=== PATIENT | male | born 1950 | race Caucasian/White ===

== ENCOUNTER 2018-01-25 17:27 | Inpatient (IN) | payer BC, MEDICARE, SELFPAY ==
[~2018-01-25] VITALS: Ht 177.8 cm; Wt 92.1 kg
[2018-01-25] MEDS ORDERED: OXYC20TA42 PO (17:47)
[2018-01-25] MEDS ORDERED: OXYC10TA6 PO (17:48)
[2018-01-25] MEDS ORDERED: COLC0.6T37 PO (17:49)
[2018-01-25] MEDS ORDERED: BENA10TA2 PO (17:50)
[2018-01-25] MEDS ORDERED: UBID100C24 PO (17:51)
[2018-01-25] MEDS ORDERED: SODIUM CHLORIDE FLUSH 10ML SYR IVF ONE (18:30)
[2018-01-25 18:39] LABS: INTERNATIONAL NORMALIZED RATIO 1.21 (0.93-1.1); PROTHROMBIN TIME 12.5 Seconds (9.6-11.5)
[2018-01-25 18:40] LABS: ALANINE AMINOTRANSFERASE 32 U/L (12-78); ALBUMIN 3.3 g/dL (3.4-5.0); ANION GAP 5 mmol/L (5-15); CALCIUM 8.4 mg/dL (8.5-10.1); CHLORIDE 114 mmol/L (98-107)
[2018-01-25 18:45] LABS: ALKALINE PHOSPHATASE 111 U/L (45-117); BILIRUBIN,TOTAL 2.4 mg/dL (0.2-1.0); CREATININE 0.71 mg/dL (0.7-1.3); TOTAL PROTEIN 6.2 g/dL (6.4-8.2); TROPONIN I 0.032 ng/mL (0.000-0.045)
[2018-01-25 19:33] LABS: MEAN CORPUSCULAR HEMOGLOBIN 32.2 pg (27.5-34.5); MEAN CORPUSCULAR HGB CONC 34.1 g/dL (33.2-36.2); MEAN CORPUSCULAR VOLUME 94.4 fL (81-97); PLATELET COUNT 96 x10^3/uL (130-400); RED BLOOD COUNT 4.51 x10^6/uL (4.38-5.82); RED CELL DISTRIBUTION WIDTH 15.3 % (9.4-14.8)
[2018-01-25 19:35] LABS: BASOPHILS # (AUTO) 0.01 x10^3/uL (0-0.1); BASOPHILS % (AUTO) 0 % (0-1); EOSINOPHILS # (AUTO) 0.07 x10^3/uL (0-0.4); EOSINOPHILS % (AUTO) 2 % (1-7); LYMPHOCYTES # (AUTO) 0.76 x10^3/uL (1-3.4); LYMPHOCYTES % (AUTO) 17 % (22-44); MD MORPH REVIEW ONLY; MONOCYTES # (AUTO) 0.41 x10^3/uL (0.2-0.8); MONOCYTES % (AUTO) 9 % (2-9); NEUTROPHILS # (AUTO) 3.32 x10^3/uL (1.8-6.8); NEUTROPHILS % (AUTO) 73 % (42-75)
[2018-01-25 19:37] LABS: ANISOCYTOSIS 1+
[2018-01-25 19:38] LABS: <PLATELET ESTIMATE> DECREASED; LARGE PLATELETS 1+; POLYCHROMASIA 1+
[2018-01-25] MEDS ORDERED: ONDANSETRON 2MG/ML, 2ML IVPush PRN (20:30)
[2018-01-25] MEDS ORDERED: morphine SULFATE 10 MG/ML, 1ML IVPush PRN (20:30)
[2018-01-25] MEDS ORDERED: hydrALAzine 20 MG/ML, 1ML IVPush PRN (20:30)
[2018-01-25] MEDS ORDERED: DOCUSATE 100 MG CAPSULE PO PRN (20:30)
[2018-01-25] MEDS ORDERED: ACETAMINOPHEN 325 MG TABLET PO PRN (20:30)
[2018-01-25] MEDS ORDERED: OXYcodone IR 5MG TABLET PO PRN (20:30)
[2018-01-25] MEDS ORDERED: BISACODYL 10 MG SUPP PR PRN (20:30)
[2018-01-25] MEDS ORDERED: ENALAPRILAT 1.25 MG/ML, 2ML IVPush PRN (20:30)
[2018-01-25] MEDS ORDERED: POLYETHYLENE GLYCOL 17 GM PACKET PO PRN (20:30)
[2018-01-25 20:55] LABS: FREE T4 (FREE THYROXINE) 1.01 ng/dL (0.76-1.46)
[2018-01-25 21:00] LABS: HEMOGLOBIN A1C 4.9 % (4.2-6.3)
[2018-01-25] MEDS ORDERED: HEPARIN 5,000 UNITS/ML, 1ML IV ONE (21:30)
[2018-01-25 21:36] VITALS: BP 184/76
[2018-01-25] MEDS ORDERED: OxyconTIN ER 10 MG TAB.ER ONE (21:37)
[2018-01-25] MEDS: SODIUM CHLORIDE 0.9% 1,000 ML IV SCH (21:43)
[2018-01-25] MEDS: OxyconTIN ER 20 MG TAB.ER PO SCH (21:44)
[2018-01-25] MEDS: HEPARIN 25,000 UNITS/500ML PMX 500 ML IV PRN (21:47)
[2018-01-25 23:46] VITALS: BP 146/66
[2018-01-25] MEDS: ZOLPIDEM 5MG TABLET PO PRN (23:54)
[2018-01-26] VITALS (7 sets, daily range): BP systolic 135–200; BP diastolic 63–83
[2018-01-26 00:30] LABS: TROPONIN I 0.031 ng/mL (0.000-0.045)
[2018-01-26 01:42] LABS: MICROSCOPIC NOT IND
[2018-01-26 01:53] LABS: CULTURE INDICATED? NO
[2018-01-26 04:53] LABS: MEAN CORPUSCULAR HEMOGLOBIN 32.4 pg (27.5-34.5); MEAN CORPUSCULAR HGB CONC 34.2 g/dL (33.2-36.2); MEAN CORPUSCULAR VOLUME 94.6 fL (81-97); RED BLOOD COUNT 4.41 x10^6/uL (4.38-5.82); RED CELL DISTRIBUTION WIDTH 15.3 % (9.4-14.8)
[2018-01-26] MEDS: HEPARIN 5,000 UNITS/ML, 1ML IV PRN ×3 (05:01→21:24)
[2018-01-26 05:25] LABS: BASOPHILS # (AUTO) 0.01 x10^3/uL (0-0.1); BASOPHILS % (AUTO) 0 % (0-1); EOSINOPHILS # (AUTO) 0.11 x10^3/uL (0-0.4); EOSINOPHILS % (AUTO) 3 % (1-7); LYMPHOCYTES # (AUTO) 1.07 x10^3/uL (1-3.4); LYMPHOCYTES % (AUTO) 32 % (22-44); MD SCAN; MEAN PLATELET VOLUME 9.7 fL (7.4-10.4); MONOCYTES # (AUTO) 0.36 x10^3/uL (0.2-0.8); MONOCYTES % (AUTO) 11 % (2-9); NEUTROPHILS # (AUTO) 1.83 x10^3/uL (1.8-6.8); NEUTROPHILS % (AUTO) 54 % (42-75); PLATELET COUNT 84 x10^3/uL (130-400)
[2018-01-26 05:28] LABS: ALANINE AMINOTRANSFERASE 29 U/L (12-78); ALKALINE PHOSPHATASE 104 U/L (45-117); ANION GAP 6 mmol/L (5-15); BILIRUBIN,TOTAL 2.5 mg/dL (0.2-1.0); CALCIUM 8.1 mg/dL (8.5-10.1); CHLORIDE 114 mmol/L (98-107); CHOLESTEROL, TOTAL 123 mg/dL (140-239); CREATININE 0.81 mg/dL (0.7-1.3); HDL CHOLESTEROL (DIRECT) 69 mg/dL (40-60); TOTAL PROTEIN 5.7 g/dL (6.4-8.2); TRIGLYCERIDES 43 mg/dL (50-200); VLDL CHOLESTEROL 9 mg/dL (0-25)
[2018-01-26 05:29] LABS: CHOL/HDL RATIO 1.8; HDL CHOL % 56 % (26-37); LDL CHOLESTEROL,CALCULATED 45 mg/dL (54-169); LDL/HDL RATIO 0.7 (0.5-3.0); TROPONIN I 0.022 ng/mL (0.000-0.045)
[2018-01-26] MEDS: SODIUM CHLORIDE 0.9% 1,000 ML IV SCH (08:31)
[2018-01-26] MEDS: OxyconTIN ER 20 MG TAB.ER PO SCH ×2 (08:31→21:18)
[2018-01-26] MEDS: OXYcodone IR 5MG TABLET PO PRN (08:42)
[2018-01-26] MEDS ORDERED: BENAZEPRIL 20 MG TABLET PO SCH (09:00)
[2018-01-26] MEDS: BENAZEPRIL 20 MG TABLET PO SCH ×2 (09:00→21:23)
[2018-01-26] MEDS: POTASSIUM CHLORIDE 20 MEQ TAB.ER.PRT PO SCH (10:02)
[2018-01-26] MEDS: CHLORTHALIDONE 25 MG TABLET PO SCH (10:02)
[2018-01-26] MEDS ORDERED: REGADENOSON 0.4 MG/5 ML SYRINGE ONE (10:28)
[2018-01-26] MEDS ORDERED: BENAZEPRIL 10 MG TABLET ONE (21:11)
[2018-01-26] MEDS ORDERED: OxyconTIN ER 10 MG TAB.ER ONE (21:12)
[2018-01-26] MEDS: HEPARIN 25,000 UNITS/500ML PMX 500 ML IV PRN (21:48)
[2018-01-26] MEDS: ZOLPIDEM 5MG TABLET PO PRN (23:39)
[2018-01-27 00:33] VITALS: BP 153/68
[2018-01-27] MEDS: HEPARIN 5,000 UNITS/ML, 1ML IV PRN (04:15)
[2018-01-27] MEDS: BENAZEPRIL 20 MG TABLET PO SCH (07:58)
[2018-01-27] MEDS: CHLORTHALIDONE 25 MG TABLET PO SCH (07:58)
[2018-01-27] MEDS: OXYcodone IR 5MG TABLET PO PRN (07:58)
[2018-01-27] MEDS: OxyconTIN ER 20 MG TAB.ER PO SCH (07:58)
[2018-01-27] MEDS: POTASSIUM CHLORIDE 20 MEQ TAB.ER.PRT PO SCH (07:59)
[2018-01-27 08:00] VITALS: BP 150/75
[2018-01-27 08:51] LABS: ANION GAP 7 mmol/L (5-15); CALCIUM 8.3 mg/dL (8.5-10.1); CHLORIDE 112 mmol/L (98-107); CREATININE 0.72 mg/dL (0.7-1.3)
[2018-01-27] MEDS ORDERED: APIXABAN 5 MG TABLET PO SCH (12:00)
[2018-01-27] MEDS ORDERED: HYDR-3342 PO (12:23)
[2018-01-27] MEDS ORDERED: APIX5TAB PO (12:23)
[2018-01-27] MEDS ORDERED: POTA20TA6 PO (12:23)
[2018-01-27] MEDS ORDERED: CHLO25TA PO (12:23)
== END 2018-01-27 13:50 | disposition home or self-care (01) | DRG 309 ==
LOC: ED 19:55 → EDIP 20:00 → 5SO 21:02 → DCLOUNGE 01-27 13:28
PROVIDERS: ADMIT Internal Medicine; ATTEND Family Medicine
DX: I44.2 Atrioventricular block, complete (principal); E44.0 Moderate protein-calorie malnutrition; D68.69 Other thrombophilia; D69.6 Thrombocytopenia, unspecified; I48.92 Unspecified atrial flutter; R00.1 Bradycardia, unspecified; F12.90 Cannabis use, unspecified, uncomplicated; F41.9 Anxiety disorder, unspecified; G89.29 Other chronic pain; I10 Essential (primary) hypertension; Z96.659 Presence of unspecified artificial knee joint; I35.8 Other nonrheumatic aortic valve disorders; M10.9 Gout, unspecified; Z80.3 Family history of malignant neoplasm of breast; Z87.891 Personal history of nicotine dependence; Z90.49 Acquired absence of other specified parts of digestive tract; Z68.29 Body mass index [BMI] 29.0-29.9, adult
CPT/HCPCS: 36415; 78452; 80048; 80053; 80061; 81003; 83036; 83735; 83880; 84436; 84439; 84443; 84484; 85025; 85520; 85610; 85730; 93005; 93017; 93306; 99291; J1644; J2785; A9502; C9898; J7030

== ENCOUNTER 2018-03-24 08:27 | Day surgery (SDC) | payer MEDICARE, MEDICAID ==
[~2018-03-24] VITALS: Ht 177.8 cm; Wt 88.6 kg
[~2018-03-24 08:27] MED LIST: APIX5TAB PO; BENA10TA2 PO; CHLO25TA PO; COLC0.6T37 PO; HYDR-3342 PO; OXYC10TA6 PO; OXYC20TA42 PO; POTA20TA6 PO; UBID100C24 PO; ZOLP-413 PO
[2018-03-24] MEDS ORDERED: SODIUM CHLORIDE 0.9% 1,000 ML IV SCH (08:39)
[2018-03-24] MEDS ORDERED: LIDOCAINE/PF 1%, 30ML ONE (08:46)
[2018-03-24] MEDS ORDERED: HEPARIN 1,000 UNITS/ML, 10ML ONE (08:47)
[2018-03-24] MEDS ORDERED: ALPR-475 PO (08:52)
[2018-03-24] MEDS ORDERED: FENTANYL PF 250 MCG/5ML ONE (09:06)
[2018-03-24] MEDS ORDERED: MIDAZOLAM 1 MG/ML, 2ML ONE (09:06)
[2018-03-24] MEDS ORDERED: SUCCINYLCHOLINE 20 MG/ML, 10ML ONE (09:33)
[2018-03-24] MEDS ORDERED: ROCURONIUM 10 MG/ML,10ML ONE (09:33)
[2018-03-24] MEDS ORDERED: PROPOFOL 10 MG/ML, 20ML ONE (09:33)
[2018-03-24] MEDS ORDERED: DEXAMETHASONE 4 MG/ML, 5ML ONE (09:33)
[2018-03-24] MEDS ORDERED: ALBUTEROL SULFATE 2.5 MG/3 ML NPPB PRN (10:30)
[2018-03-24] MEDS ORDERED: OXYcodone 5 MG/5 ML ORAL.SOL UDC PO PRN (10:30)
[2018-03-24] MEDS ORDERED: ACETAMINOPHEN 325 MG TABLET PO PRN (10:30)
[2018-03-24] MEDS ORDERED: PROMETHAZINE 25 MG/ML, 1ML IV PRN (10:30)
[2018-03-24] MEDS ORDERED: LABETALOL 5MG/ML, 20ML IV PRN (10:30)
[2018-03-24] MEDS ORDERED: TEMPLATE NON-FORMULARY MED. (Oxycodone Hcl** 10 MG) PO PRN (10:30)
[2018-03-24] MEDS ORDERED: PROMETHAZINE 12.5 MG SUPP PR PRN (10:30)
[2018-03-24] MEDS ORDERED: APIXABAN 5 MG TABLET PO SCH (10:30)
[2018-03-24] MEDS ORDERED: MIDAZOLAM 1 MG/ML, 2ML IV PRN (10:30)
[2018-03-24] MEDS ORDERED: ONDANSETRON ODT 8 MG PO PRN (10:30)
[2018-03-24] MEDS ORDERED: OxyconTIN ER 20 MG TAB.ER PO SCH (10:30)
[2018-03-24] MEDS ORDERED: hydrALAzine 20 MG/ML, 1ML IV PRN (10:30)
[2018-03-24] MEDS ORDERED: FENTANYL PF 100 MCG/2ML IV PRN (10:30)
[2018-03-24] MEDS ORDERED: MEPERIDINE/PF 25MG/0.5ML IVPush PRN (10:30)
[2018-03-24] MEDS ORDERED: MORPHINE SULFATE 4 MG/ML, 1ML IVPush PRN (10:30)
[2018-03-24] MEDS ORDERED: ZOLPIDEM 5MG TABLET PO SCH (21:00)
[2018-03-25] MEDS ORDERED: POTASSIUM CHLORIDE 20 MEQ TAB.ER.PRT PO SCH (09:00)
[2018-03-25] MEDS ORDERED: CHLORTHALIDONE 25 MG TABLET PO SCH (09:00)
[2018-03-25] MEDS ORDERED: BENAZEPRIL 10 MG TABLET PO SCH (09:00)
[2018-03-25] MEDS ORDERED: TEMPLATE NON-FORMULARY MED. (Ubidecarenone (Coq-10) 100 MG) PO SCH (09:00)
== END 2018-03-24 16:00 | disposition home or self-care (01) ==
LOC: CACL 08:27
PROVIDERS: ATTEND Internal Medicine Cardiovascular Disease
DX: I48.91 Unspecified atrial fibrillation (principal); I10 Essential (primary) hypertension; G89.29 Other chronic pain; M10.9 Gout, unspecified; Z90.49 Acquired absence of other specified parts of digestive tract
CPT/HCPCS: 93312; 93321; 93325; 93656; J0330; J1100; J1644; J2250; J2704; J3010; J3490

== ENCOUNTER 2018-05-30 10:13 | Inpatient (IN) | payer MEDICARE ==
[~2018-05-30] VITALS: Ht 177.8 cm; Wt 91.0 kg
[~2018-05-30 10:13] MED LIST changes: +ALPR-475 PO; -BENA10TA2 PO; +BENA10TA4 PO
[2018-05-30 11:05] VITALS: BP 126/57
[2018-05-30] MEDS ORDERED: WARF-36 PO (11:26)
[2018-05-30] MEDS ORDERED: PLEASE ENTER HEIGHT AND WEIGHT MC SCH (11:30)
[2018-05-30] MEDS ORDERED: SODIUM CHLORIDE 0.9% 1,000 ML IV SCH (12:00)
[2018-05-30] MEDS ORDERED: PROPOFOL 10 MG/ML, 20ML ONE (12:47)
[2018-05-30] MEDS ORDERED: NALOXONE 0.4 MG/ML, 1ML IVPush PRN ×2 (13:00)
[2018-05-30 14:55] LABS: INTERNATIONAL NORMALIZED RATIO 1.51 (0.93-1.1); PROTHROMBIN TIME 15.6 Seconds (9.6-11.5)
[2018-05-30] MEDS: OxyconTIN ER 20 MG TAB.ER PO SCH (16:16)
[2018-05-30] MEDS ORDERED: WARFARIN 5 MG TABLET PO-COUM SCH (18:00)
[2018-05-30] MEDS: OXYcodone IR 5MG TABLET PO PRN (18:08)
[2018-05-30 19:04] VITALS: BP 127/55
[2018-05-30] MEDS: BENAZEPRIL 20 MG TABLET PO SCH (21:00)
[2018-05-30] MEDS ORDERED: BENAZEPRIL 10 MG TABLET ONE (21:00)
[2018-05-30] MEDS: ZOLPIDEM 10MG TABLET PO SCH (21:13)
[2018-05-30] MEDS ORDERED: ATROPINE SYRINGE 0.1 MG/ML, 10ML IVPush ONE (22:30)
[2018-05-30] MEDS ORDERED: ATROPINE SYRINGE 0.1 MG/ML, 10ML IVPush PRN (23:00)
[2018-05-31] MEDS: OxyconTIN ER 20 MG TAB.ER PO SCH ×2 (01:00→13:04)
[2018-05-31 01:02] VITALS: BP 137/66
[2018-05-31 04:49] LABS: MEAN CORPUSCULAR HEMOGLOBIN 32.3 pg (27.5-34.5); MEAN CORPUSCULAR HGB CONC 33.9 g/dL (33.2-36.2); MEAN CORPUSCULAR VOLUME 95.4 fL (81-97); RED BLOOD COUNT 4.37 x10^6/uL (4.38-5.82); RED CELL DISTRIBUTION WIDTH 14.7 % (9.4-14.8)
[2018-05-31 04:58] LABS: ALANINE AMINOTRANSFERASE 26 U/L (12-78); ALBUMIN 2.8 g/dL (3.4-5.0); ANION GAP 7 mmol/L (5-15); CALCIUM 8.3 mg/dL (8.5-10.1); CHLORIDE 107 mmol/L (98-107); CREATININE 0.79 mg/dL (0.7-1.3)
[2018-05-31 05:07] LABS: ALKALINE PHOSPHATASE 77 U/L (45-117); BILIRUBIN,TOTAL 1.8 mg/dL (0.2-1.0); T4 (THYROXINE) 7.2 mcg/dL (4.5-12.1); TOTAL PROTEIN 5.4 g/dL (6.4-8.2)
[2018-05-31 05:44] LABS: BASOPHILS # (AUTO) 0.02 x10^3/uL (0-0.1); BASOPHILS % (AUTO) 1 % (0-1); EOSINOPHILS # (AUTO) 0.07 x10^3/uL (0-0.4); EOSINOPHILS % (AUTO) 2 % (1-7); LYMPHOCYTES # (AUTO) 0.93 x10^3/uL (1-3.4); LYMPHOCYTES % (AUTO) 32 % (22-44); MD SCAN; MEAN PLATELET VOLUME 9.2 fL (7.4-10.4); MONOCYTES # (AUTO) 0.36 x10^3/uL (0.2-0.8); MONOCYTES % (AUTO) 12 % (2-9); NEUTROPHILS # (AUTO) 1.56 x10^3/uL (1.8-6.8); NEUTROPHILS % (AUTO) 53 % (42-75); PLATELET COUNT 86 x10^3/uL (130-400)
[2018-05-31 08:36] VITALS: BP 128/64
[2018-05-31] MEDS ORDERED: DIPHENHYDRAMINE 50 MG/ML, 1ML ONE (08:38)
[2018-05-31] MEDS ORDERED: MIDAZOLAM 1 MG/ML, 5ML ONE (08:38)
[2018-05-31] MEDS ORDERED: FENTANYL PF 250 MCG/5ML ONE (08:38)
[2018-05-31] MEDS ORDERED: LIDOCAINE-MPF 2% ,5ML ONE (08:39)
[2018-05-31] MEDS ORDERED: CEFAZOLIN PMX 1GM/50ML 50 ML ONE (08:40)
[2018-05-31] MEDS ORDERED: CEFAZOLIN 1,000 MG ONE (08:40)
[2018-05-31] MEDS ORDERED: TEMPLATE NON-FORMULARY MED. (Ubidecarenone (Coq-10) 100 MG) PO SCH (09:00)
[2018-05-31] MEDS ORDERED: ACETAMINOPHEN 325 MG TABLET PO PRN (10:30)
[2018-05-31] MEDS ORDERED: HOLD MEDICATION MC PRN (10:30)
[2018-05-31] MEDS ORDERED: BENAZEPRIL 10 MG TABLET ONE ×2 (10:38→20:57)
[2018-05-31] MEDS: POTASSIUM CHLORIDE 20 MEQ TAB.ER.PRT PO SCH (10:47)
[2018-05-31] MEDS: CHLORTHALIDONE 25 MG TABLET PO SCH (10:47)
[2018-05-31] MEDS: BENAZEPRIL 20 MG TABLET PO SCH ×2 (10:48→20:59)
[2018-05-31] MEDS ORDERED: OxyconTIN ER 10 MG TAB.ER ONE (13:02)
[2018-05-31 13:37] VITALS: BP 148/84
[2018-05-31] MEDS: CEFAZOLIN PMX 1GM/50ML 50 ML IVPB SCH (17:36)
[2018-05-31 18:42] VITALS: BP 118/75
[2018-05-31] MEDS: OXYcodone IR 5MG TABLET PO PRN (19:57)
[2018-05-31] MEDS: SODIUM CHLORIDE FLUSH 10ML SYR IVF SCH (21:00)
[2018-05-31] MEDS: ZOLPIDEM 10MG TABLET PO SCH (23:09)
[2018-06-01 01:08] VITALS: BP 128/80
[2018-06-01] MEDS ORDERED: OxyconTIN ER 10 MG TAB.ER ONE (02:25)
[2018-06-01] MEDS: OxyconTIN ER 20 MG TAB.ER PO SCH (02:32)
[2018-06-01] MEDS: CEFAZOLIN PMX 1GM/50ML 50 ML IVPB SCH (02:32)
[2018-06-01 07:58] VITALS: BP 136/82
[2018-06-01] MEDS ORDERED: BENAZEPRIL 10 MG TABLET ONE (08:22)
[2018-06-01] MEDS: POTASSIUM CHLORIDE 20 MEQ TAB.ER.PRT PO SCH (08:28)
[2018-06-01] MEDS: CHLORTHALIDONE 25 MG TABLET PO SCH (08:29)
[2018-06-01] MEDS: BENAZEPRIL 20 MG TABLET PO SCH (08:29)
[2018-06-01] MEDS: SODIUM CHLORIDE FLUSH 10ML SYR IVF SCH (08:30)
[2018-06-01] MEDS: OXYcodone IR 5MG TABLET PO PRN (08:39)
== END 2018-06-01 11:55 | disposition home or self-care (01) | DRG 243 ==
LOC: CACL 10:13 → ORIP 12:54 → 5SO 14:35 → DCLOUNGE 06-01 11:35
PROVIDERS: ADMIT Internal Medicine Cardiovascular Disease; ATTEND Internal Medicine Cardiovascular Disease
PROC: 0JH606Z Insertion of Pacemaker, Dual Chamber into Chest Subcutaneous Tissue and Fascia, Open Approach (ICD-10-PCS; principal; 2018-05-31)
PROC: 02H63JZ Insertion of Pacemaker Lead into Right Atrium, Percutaneous Approach (ICD-10-PCS; 2018-05-31)
PROC: 02HK3JZ Insertion of Pacemaker Lead into Right Ventricle, Percutaneous Approach (ICD-10-PCS; 2018-05-31)
DX: I49.5 Sick sinus syndrome (principal); I48.92 Unspecified atrial flutter; D68.69 Other thrombophilia; E44.1 Mild protein-calorie malnutrition; I48.91 Unspecified atrial fibrillation; F32.9 Major depressive disorder, single episode, unspecified; F41.9 Anxiety disorder, unspecified; M54.9 Dorsalgia, unspecified; G89.29 Other chronic pain; D69.6 Thrombocytopenia, unspecified; I51.3 Intracardiac thrombosis, not elsewhere classified; Z87.891 Personal history of nicotine dependence
CPT/HCPCS: 33208; 36415; 71045; 80053; 84436; 84481; 85025; 85610; 93005; 93312; 93321; 93325; 99156; 99157; C1779; C1785; C1892; J0690; J2250; J2704; J3010; J3490; J1200

== ENCOUNTER → 2020-11-05 | Outpatient (CLI) | payer MEDICARE ==
[~2020-11-05] MED LIST changes: -ALPR-475 PO; +ALPR0.5T7 PO; -BENA10TA4 PO; +BENA10TA59 PO; +WARF-36 PO
== END | disposition home or self-care (01) ==
LOC: RAD 12:24
PROVIDERS: ATTEND Family Medicine
DX: G37.0 Diffuse sclerosis of central nervous system (principal)
CPT/HCPCS: 72195